=== PATIENT | female | born 1955 | race Caucasian/White ===

== ENCOUNTER → 2016-08-30 | Outpatient (CLI) | payer OTHER ==
--- NOTE | 2016-08-30 16:05 | KCIC ---
PROCEDURE Bilateral screening mammogram HISTORY 61-year-old female presents for annual screening mammogram. COMPARISON August 17, 2015 FINDINGS Bilateral digital mammograms are obtained with CAD. The breasts are heterogeneously dense, which can obscure small masses (tissue density C). No dominant suspicious mass, suspicious microcalcifications, or architecture distortion is identified in either breast. IMPRESSION Negative exam. Recommend screening mammogram in 1 year. BI-RADS category 1: Negative The patient information was entered into a reminder system with a target due date for the next mammogram. Mammography is not 100% sensitive in detecting breast cancer. Therefore, a self breast exam and a clinical breast exam are very important. A negative mammogram does not negate a clinically suspicious finding and should not result in a delay in biopsying a clinically suspicious abnormality. Electronically signed by: Maria Elena Davis (Aug 30, 2016 16:04:29)
== END | disposition home or self-care (01) ==
LOC: KCIC MAMMO 15:25
PROVIDERS: ATTEND Nurse Practitioner Adult Health
DX: Z12.31 Encounter for screening mammogram for malignant neoplasm of breast (principal)
CPT/HCPCS: G0202; 77067

== ENCOUNTER → 2017-09-18 | Outpatient (CLI) | payer OTHER | END | disposition home or self-care (01) | LOC: KCIC MAMMO 15:48 | DX: Z12.31 Encounter for screening mammogram for malignant neoplasm of breast (principal) | CPT/HCPCS: 77063; 77067 ==

== ENCOUNTER → 2018-10-22 | Outpatient (CLI) | payer OTHER ==
--- NOTE | 2018-10-23 12:32 | KCIC ---
Bilateral digital screening mammograms with 3-D tomosynthesis: Reason for examination: Routine screening. Comparison is made to previous studies dated 09/18/2017 and 08/30/2016. Bilateral mammograms in CC and oblique projections were obtained with 2-D imaging and 3-D tomosynthesis imaging on a Siemens Inspiration unit and reviewed on the workstation. Interpretation was made with the benefit of CAD. The skin and nipples show no abnormalities. No abnormal axillary lymph nodes are seen. The breast parenchyma is heterogeneously dense. (Breast density: Category C.) There appears to be a nodular density developing laterally in the left breast on CC view probably in the 4:00 B position. Recommend further evaluation with coned compression views in CC and lateral projections and left breast ultrasound. There are no other dominant masses, suspicious calcifications or architectural distortion. Impression: Possible nodule developing in the left breast at the 4:00 B position. Recommend further evaluation with coned compression views and ultrasound. Your patient's mammogram demonstrates that she has dense breast tissue (breast density category C or D), which could hide abnormalities, and if she has other risk factors for breast cancer that have been identified, she might benefit from supplemental screening tests that may be suggested by you as her ordering physician. Dense breast tissue, in and of itself, is a relatively common condition. Therefore, this information is not provided to cause undue concern, but rather to raise your awareness and to promote discussion with your patient regarding the presence of other risk factors, in addition to dense breast tissue. Your patient's mammography results will be sent to her. BI-RAD Category 0: Incomplete. Needs additional imaging evaluation. "Our facility is accredited by the [employer] Mammography [employer]." This patient's information has been entered into a reminder system for the patient to be notified with the results of her examination and a target date for the next mammogram. Electronically signed by: Sagrario Martinez MD (10/23/2018 12:29 PM) [facility]
== END | disposition home or self-care (01) ==
LOC: KCIC MAMMO 16:00
PROVIDERS: ATTEND Obstetrics & Gynecology
DX: Z12.31 Encounter for screening mammogram for malignant neoplasm of breast (principal)
CPT/HCPCS: 77063; 77067

== ENCOUNTER → 2018-10-30 | Outpatient (CLI) | payer OTHER ==
--- NOTE | 2018-10-30 14:22 | KCIC ---
Left breast diagnostic digital mammograms: Reason for examination: Nodular density on screening mammogram. Comparison is made to mammographic exam dated 10/22/2018. Coned compression views were obtained in CC and lateral projections. With these additional views, there is still some subtle nodularity suggested on cc view which is probably at the 4:00 position. Further evaluation with ultrasound will follow. IMPRESSION: Nodularity persists anterior laterally in the left breast. Ultrasound to follow. BI-RADS Category 0: Incomplete. Needs additional imaging evaluation. Left breast ultrasound: Ultrasound examination was performed with attention to the lateral breast and left axilla. In the 4:00 position 4 cm from the nipple, there is a 5.8 x 6.5 mm hypoechoic lesion which may represent a small fibroadenoma. There is also a small 3.8 mm hypoechoic fibrocystic type lesion in the 3:00 position 5 cm from the nipple. No other cystic or solid lesions are seen. No abnormal appearing lymph nodes are seen in the axilla. IMPRESSION: Small 3.8 mm fibrocystic type lesion at the 3:00 position. 6.5 mm nodule probably representing a fibroadenoma at the 4:00 position. No suspicious abnormality seen. Recommend 6 month follow-up with ultrasound. BI-RADS Category 3: Probably Benign. "Our facility is accredited by the [employer] Mammography Program." This patient's information has been entered into a reminder system for the patient to be notified with the results of her examination and a target date for the next mammogram. Electronically signed by: Sagrario Martinez MD (10/30/2018 2:19 PM) [facility]
== END | disposition home or self-care (01) ==
LOC: KCIC MAMMO 13:03
PROVIDERS: ATTEND Obstetrics & Gynecology
DX: R92.8 Other abnormal and inconclusive findings on diagnostic imaging of breast (principal)
CPT/HCPCS: 76641; 77065

== ENCOUNTER → 2019-05-20 | Outpatient (CLI) | payer OTHER ==
--- NOTE | 2019-05-20 10:42 | KCIC ---
BREAST LEFT Clinical Indication: Six-month follow-up. Comparison: Bilateral mammogram 10/22/2018. Diagnostic left mammogram and breast ultrasound 10/30/2018. TECHNIQUE: Real-time ultrasound imaging of the left breast is performed. Findings: At the 4:00 position 4 cm from the nipple, well-circumscribed hypoechoic lesion measures 5 x 3 mm and is probably a fibroadenoma. At the 3:00 position 5 cm from the nipple, hypoechogenicity measures up to 3 mm and is stable. The margins are mildly irregular. Finding may be due to fibrocystic change. No abnormal axillary lymph node is identified. IMPRESSION: 1. Interval stability of tiny fibrocystic change at the 3:00 position 5 cm from the nipple. Recommend additional six-month ultrasound follow-up to document one-year of stability. 2. Stable probable fibroadenoma 4:00 position 4 cm from the nipple. 3. BI-RADS Category 3, probably benign. Electronically signed by: Walker Sanchez MD (05/20/2019 10:39 AM) [facility]
== END | disposition home or self-care (01) ==
LOC: KCIC US 10:02
PROVIDERS: ATTEND Obstetrics & Gynecology
DX: N64.89 Other specified disorders of breast (principal); N63.20 Unspecified lump in the left breast, unspecified quadrant
CPT/HCPCS: 76641

== ENCOUNTER → 2020-02-13 | Outpatient (CLI) | payer OTHER ==
--- NOTE | 2020-02-13 18:42 | KCIC ---
Left breast ultrasound: Reason for examination: Follow-up for nodule. Comparison is made to previous studies dated 05/20/2019 and 10/30/2018. Ultrasound examination of the left breast was performed in the area of previous concern and at the axilla. At the 4:00 position 4 cm from the nipple, there continues to be a hypoechoic circumscribed lesion measuring 4.4 mm in greatest dimension and line in parallel orientation consistent with a small fibroadenoma. No new cystic or solid nodules are seen. Impression: Continued presence of a small nodule probably representing a fibroadenoma at the 4:00 position which appears to be stable. Recommend routine mammographic follow-up. BI-RADS Category 2: Benign. "Our facility is accredited by the [employer] Mammography Program." This patient's information has been entered into a reminder system for the patient to be notified with the results of her examination and a target date for the next mammogram. Electronically signed by: Sagrario Martinez MD (02/13/2020 6:39 PM) [id number]
== END | disposition home or self-care (01) ==
LOC: KCIC US 07:54
PROVIDERS: ATTEND Nurse Practitioner Family
DX: R92.8 Other abnormal and inconclusive findings on diagnostic imaging of breast (principal); N63.23 Unspecified lump in the left breast, lower outer quadrant
CPT/HCPCS: 76641

== ENCOUNTER → 2020-02-26 | Outpatient (CLI) | payer OTHER ==
--- NOTE | 2020-02-26 11:13 | KCIC ---
Bilateral digital screening mammograms with 3-D tomosynthesis: Reason for examination: Routine screening. Comparison is made to previous studies dated back to 08/17/2015. Bilateral mammograms in CC and oblique projections were obtained with 2-D imaging and 3-D tomosynthesis imaging on a Siemens Inspiration unit and reviewed on the workstation. Interpretation was made with the benefit of CAD. The skin and nipples show no abnormalities. No abnormal axillary lymph nodes are seen. The breast parenchyma is heterogeneously dense. (Breast density: Category C.) There are no dominant masses, suspicious calcifications or architectural distortion. Impression: No evidence of malignancy. Recommend routine screening. Your patient's mammogram demonstrates that she has dense breast tissue (breast density category C or D), which could hide abnormalities, and if she has other risk factors for breast cancer that have been identified, she might benefit from supplemental screening tests that may be suggested by you as her ordering physician. Dense breast tissue, in and of itself, is a relatively common condition. Therefore, this information is not provided to cause undue concern, but rather to raise your awareness and to promote discussion with your patient regarding the presence of other risk factors, in addition to dense breast tissue. Your patient's mammography results will be sent to her. BI-RAD Category 1: Negative. "Our facility is accredited by the [employer] Mammography Program." This patient's information has been entered into a reminder system for the patient to be notified with the results of her examination and a target date for the next mammogram. Electronically signed by: Sagrario Martinez MD (02/26/2020 11:10 AM) [email or web address]
== END | disposition home or self-care (01) ==
LOC: KCIC MAMMO 09:51
PROVIDERS: ATTEND Nurse Practitioner Family
DX: Z12.31 Encounter for screening mammogram for malignant neoplasm of breast (principal)
CPT/HCPCS: 77063; 77067

== ENCOUNTER 2020-07-05 15:38 | Emergency (ER) | payer OTHER ==
[~2020-07-05] VITALS: Ht 170.2 cm; Wt 62.2 kg
--- NOTE | 2020-07-05 15:55 | PHYS DOC ---
General Adult HPI: HPI: 64-year-old female past medical history of anxiety/depression with intentional weight loss, approximately 30 pounds due to dieting in the past 6 months, and osteoporesis (talks calcium, use to be on generic boniva), presents to the ED brought by EMS from work, after witnessed syncope while bending down forward to pick something up and standing up quickly. Pt reports feeling dizziness prior to syncope and has had some dizziness, intermittently throughout the day. Denies any starvation or bulemia, tolerated food today. Denies any overdose of any medications. No prior history of head trauma, not on any anticoagulants. History of syncope approximately 30 years ago. Does not smoke tobacco. No history of cardiac arrhythmias, CAD, stroke, pulmonary emboli, connective tissue disorder, sudden under the age of 50 and family or aortic disease. No preceding chest pain, back pain, abdominal pain or shortness of breath. Prior to this felt well with no fever/infection or fluid losses (no V/D). Tetanus is UTD. No drug/alcohol use. C/o right lateral ankle pain in the ed. (MELISSA MCBRIDE DO) Review of Systems: Review of Systems: Constitutional: Denies fever or chills. [] Eyes: Denies change in visual acuity/blurry vision HENT: Denies nasal congestion or sore throat or facial bone ttp Respiratory: Denies cough or shortness of breath. [] Cardiovascular: Denies chest pain or edema. [] GI: Denies abdominal pain, nausea, vomiting, bloody stools or diarrhea. [] : Denies dysuria or hematuria Musculoskeletal: Denies back pain or joint pain. [] Integument: Denies rash. [] Neurologic: Denies headache, midline neck pain, focal weakness or sensory changes. [] Endocrine: Denies polyuria or polydipsia. [] Lymphatic: Denies swollen glands. [] Psychiatric: Denies SI/HI (MELISSA MCBRIDE DO) Heart Score: Risk Factors: Risk Factors: DM, Current or recent (<one month) smoker, HTN, HLP, family history of CAD, obesity. Risk Scores: Score 0 - 3: 2.5% MACE over next 6 weeks - Discharge Home Score 4 - 6: 20.3% MACE over next 6 weeks - Admit for Clinical Observation Score 7 - 10: 72.7% MACE over next 6 weeks - Early Invasive Strategies (MELISSA MCBRIDE DO) Physical Exam: PE: Constitutional: Very thin, HENT: 1.5 cm laceration over left lateral eyebrow line Eyes: EOMI, conjunctiva normal, no discharge. Neck: Normal range of motion, supple, Cardiovascular: S1/2 present, regular rhythm Lungs & Thorax: Speaking in full sentences, bilateral equal chest rise, no tachypnea or increased work of breathing Abdomen: soft, no tenderness, Skin: Warm, dry, no erythema, Back: No midline tenderness, no CVA tenderness. [] Extremities: No tenderness, mild swelling to right lateral distal fibula w/ttp, no russells sign Neurologic: Alert and oriented X 3, normal motor function, normal sensory func tion, no focal deficits noted. [] Psychologic: Affect normal, judgement normal, somewhat anxious Nexus C-spine criteria are negative: There is no post midline tenderness, the patient is not intoxicated, there is a normal level of alertness, there are no focal neurologic deficits and there are no distracting injuries. no indication for c-collar. (MELISSA MCBRIDE DO) PE: Constitutional: Well developed, well nourished, no acute distress, non-toxic appearance Eyes: PERRL, EOMI, conjunctiva normal, no discharge Lungs & Thorax: No respiratory distress, equal chest rise and fall Skin: Warm, dry, no erythema, no rash, 4cm laceration to left eyebrow, bleeding controlled, no foreign body noted. Extremities: right lateral malleolar pain and swelling, CR < 2 sec, DP and PT +2 Neurologic: Alert and oriented X 3, normal motor function, normal sensory func tion, no focal deficits noted Psychologic: Affect normal, judgment normal (ALINE ORTIZ DO) EKG: EKG: Sinus rhythm at 67 bpm, no axis deviation, normal intervals, no T wave inversions, no ST elevations or ST depressions, low limb lead voltage (MELISSA MCBRIDE DO) Radiology/Procedures: Radiology/Procedures: IMAGING REPORT Signed PATIENT: MIKE MENDOZA ACCOUNT: [id number] : 1955 LOCATION: ER AGE: 64 SEX: F EXAM STATUS: PRE ER ORD. PHYSICIAN: MELISSA MCBRIDE DO REASON: syncope today, hit head PROCEDURE: CT HEAD WO CONTRAST CT brain without contrast. HISTORY: Syncope, head trauma CT scan the brain was done without contrast. Sinuses are clear. A skull fracture is not identified. Mastoids are normally aerated. There is no intracranial hemorrhage or subdural hematoma. Ventricles are normal in size. There is no mass or shift of the midline. There is decreased density in the white matter which could be chronic microvascular changes but white matter disease for other etiologies is possible. MRI would be of benefit. IMPRESSION: 1. Areas of decreased density in the white matter, correlation with MRI would be of benefit. 2. No intracranial hemorrhage or other acute finding. [facility] Compliance Statement: One or more of the following individualized dose reduction techniques were utilized for this examination: 1. Automated exposure control 2. Adjustment of the mA and/or kV according to patient size 3. Use of iterative reconstruction technique Electronically signed by: Jasson Perdomo MD (07/05/2020 4:20 PM) [facility] DICTATED and SIGNED BY: JASSON PERDOMO MD DATE: 07/05/20 [id number] IMAGING REPORT Signed PATIENT: MIKE MENDOZA ACCOUNT: [id number] : 1955 LOCATION: ER AGE: 64 SEX: F EXAM STATUS: PRE ER ORD. PHYSICIAN: MELISSA MCBRIDE DO REASON: syncope PROCEDURE: PORTABLE CHEST 1V EXAM: PORTABLE CHEST 1V INDICATION: Reason: syncope / Spl. Instructions: / History: . TECHNIQUE: Single view COMPARISON: None FINDINGS: The heart size is normal. The great vessels appear unremarkable. There is no hilar or mediastinal mass. The lungs are clear. There is no pleural effusion or pneumothorax. There are no significant osseous abnormalities. IMPRESSION: No active cardiopulmonary disease. Electronically signed by: Ilana Wilkins MD (07/05/2020 4:05 PM) [id number] DICTATED and SIGNED BY: ILANA WILKINS MD DATE: 07/05/20 [id number] IMAGING REPORT Signed PATIENT: MIKE MENDOZA ACCOUNT: [id number] : 1955 LOCATION: ER AGE: 64 SEX: F EXAM STATUS: REG ER ORD. PHYSICIAN: MELISSA MCBRIDE DO REASON: ankle pain PROCEDURE: ANKLE RIGHT 3V 3 view study of the right ankle Clinical indications: Right ankle pain. FINDINGS: There is a nondisplaced spiral fracture of the distal right fibular metadiaphysis. The mortise ankle joint is intact. No lytic process is seen. IMPRESSION: Fracture of the distal right fibula. Electronically signed by: Curtis Edge MD (07/05/2020 5:10 PM) [id number] DICTATED and SIGNED BY: CURTIS EDGE MD DATE: 07/05/20 [id number] (MELISSA MCBRIDE DO) Course & Med Decision Making: Course & Med Decision Making Pertinent Labs and Imaging studies reviewed. (See chart for details) Concern for syncope with right facial laceration, suspect vasovagal vs orthostatic hypotension. CT images with no trauma. Right ankle x-ray with sp iral right distal tibial fracture, minimally displaced. Patient with no right knee or fibular head pain. Patient does report history of osteoporosis with multiple fractures including left ankle right wrist and toes. Patient is pending splint laceration repair. Due to shift change patient was signed out to oncoming physician Dr. Ortiz for further evaluation. Patient was advised to follow-up with Ortho in the next 2 weeks. Patient was given strict ED return precautions for chest, back, abdominal pain, recurrent syncope or difficulties breathing. Life/limb-threatening differential includes but is not limited to, intracranial hemorrhage, diffuse axonal injury, spinal cord syndrome, unstable cervical fracture or SCIWORA, fractures or joint dislocations, neurovascular injuries, organ injury or laceration, pneumothorax, pneumoperitoneum, pericardial tamponade, unstable pelvic fracture, compartment syndrome, flail chest or respiratory distress, burn injury or asphyxiation, AAA, CVA, aortic dissection, acute coronary syndrome, anemia, valvular disorder, cerebrovascular accident, drug overdose or toxidrome, arrhythmia, prolonged QT syndrome, hemorrhage, heat illness, intracranial hemorrhage, infection including meningitis/encephalitis/sepsis/toxic shock/myocarditis, vertebrobasilar insufficiency, seizure, medication adverse event, illicit drug use, electrolyte disorder (MELISSA MCBRIDE DO) Course & Med Decision Making [id number]-signout received from Dr. Mcbride for patient with syncopal episode. Patient with known right distal fibular fracture which was splinted. Splint evaluated. Limb neurovascularly intact. Patient also noted to have a laceration to left eyebrow which was repaired by myself. Labs reviewed. CT and x-ray imaging also reviewed. Discharge paperwork completed by Dr. Mcbride. A prescription for hydrocodone was also provided by Dr. Mcbride. Patient stable for discharge with outpatient follow-up with PCP/orthopedics. Orthopedic referral provided. Discussed findings and plan with patient, who acknowledges understanding and agreement. (ALINE ORTIZ DO) Dragon Disclaimer: Dragon Disclaimer: This electronic medical record was generated, in whole or in part, using a voice recognition dictation system. (MELISSA MCBRIDE DO) Splinting Splinting : Location: Right ankle Hand-Made Type: orthoglass Splint: sugar-tong Pre-Proc Neuro Vasc Exam: normal Post-Proc Neuro Vasc Exam: normal, unchanged from pre-exam (ALINE ORTIZ DO) Laceration/Wound Repair Laceration/Wound Repair : Wound Location: face Wound's Depth, Shape: linear Wound Length (cm): 4 Wound Explored: no foreign body removed Irrigated w/ Saline (ccs): 200 Anesthesia: Lidocaine w/ Epi (2%) Volume Anesthetic (ccs): 2 Wound Debrided: minimal Wound Repaired With: sutures Suture Size/Type: 6:0, nylon Number of Sutures: 7 Sterile Dressing Applied?: Yes Progress Verbal consent obtained. Time out performed. Hand hygiene utilized. Wound cleaned with ChloraPrep. Anesthesia obtained via a 30-gauge hypodermic needle with (2) mL's of lidocaine 2% with epinephrine. Copious irrigation performed. Wound well approximated with 6-0 Nylon x 7 simple interrupted. Patient tolerated procedure well and without difficulty. Empiric antibiotic ointment applied prior to sterile dressing. (ALINE ORTIZ DO) Departure Departure Impression: Primary Impression: Syncope and collapse Additional Impressions: Facial laceration Qualified Codes: S01.81XA - Laceration without foreign body of other part of head, initial encounter Closed right fibular fracture Qualified Codes: S82.831A - Other fracture of upper and lower end of right fibula, initial encounter for closed fracture Disposition: 01 DC HOME SELF CARE/HOMELESS Condition: STABLE Referrals: LYNETTE LAMAS MD (PCP) CARLOS TOMLIN MD Patient Instructions: Ankle Fracture, Laceration Care, Adult, [id number], Splint Care, [id number], Syncope Additional Instructions: FOLLOW UP WITH ORTHOPEDICS: Orthopaedic Sports Medicine Orthopaedic Surgery [facility] Address: [address] [facility] [address] [address] EMERGENCY DEPARTMENT GENERAL DISCHARGE INSTRUCTIONS Thank you for coming to [facility] Emergency Department (ED) today and trusting us with you care. We trust that you had a positive experience in our Emergency Department. If you wish to speak to the department management, you may call the Director at [phone]. YOUR FOLLOW UP INSTRUCTIONS ARE FOLLOWS: 1. Do you have a private Doctor? If you do not have a private doctor, please ask for a resource list of physicians or clinics that may be able to assist you with f ollow up care. 2. The Emergency Physicain has interpreted your x-rays. The X-Ray specialist will also review them. If there is a change in the findings, you will be notified in 48 hours when at all possible. 3. A lab test or culture has been done, your results will be reviewed and you will be notified if you need a change in treatment. ADDITIONAL INSTRUCTIONS AND INFORMATION: 1. Your care today has been supervised by a physician who is specially trained in emergency care. Many problems require more than one evaluation for a complete diagnosis and treatment. We recommend that you schedule your follow up appointment as recommended to ensure complete treatment of you illness or injury. If you are unable to obtain follow up care and continue to have a problem, or if your condition worsens, we recommend that you return to the ED. 2. We are not able to safely determine your condition over the phone nor are we able to give sound medical advice over the phone. For these safety reasons, if you call for medical advice we will ask you to come to the ED for further evaluation. 3. If you have any questions regarding these discharge instructions please call the ED at [phone]. SAFETY INFORMATION: In the interest of safety, wellness, and injury prevention; we encourage you to wear your sealbelt, if you smoke; quite smoking, and we encourage family to use a protect monie helmet for bicycling and other sporting events that present an increased risk for head injury. IF YOUR SYMPTOMS WORSEN OR NEW SYMPTOMS DEVELOP, OR YOU HAVE CONCERNS ABOUT YOUR CONDITION; OR IF YOUR CONDITION WORSENS WHILE YOU ARE WAITING FOR YOUR FOLLOW UP APPOINTMENT; EITHER CONTACT YOUR PRIMARY CARE DOCTOR, THE PHYSICIAN WHOSE NAME AND NUMBER YOU WERE GIVEN, OR RETURN TO THE ED IMMEDIATELY. Do not soak your wound. You may shower. Clean wound daily with soap and water. Change dressing 2 times daily. Use over the counter antibiotic ointment with each dressing change. Sutures need to be removed in 5 days. Present to your family doctor or local urgent care for removal. You may also present to the ED but it will be an additional visit/charge. After suture removal you may use Vitamin E ointment to soften the wound and prevent scarring. Scripts Hydrocodone/Apap 5-325 (NORCO 5-325 TABLET) 1 Each Tablet 1 TAB PO PRN Q6HRS PRN for PAIN, #10 TAB 0 Refills Prov: MELISSA MCBRIDE DO 07/05/20 MELISSA MCBRIDE DO Jul 05, 2020 15:55 ORTIZALINE DO Jul 05, 2020 19:33
--- NOTE | 2020-07-05 16:08 | RAD ---
EXAM: PORTABLE CHEST 1V INDICATION: Reason: syncope / Spl. Instructions: / History: . TECHNIQUE: Single view COMPARISON: None FINDINGS: The heart size is normal. The great vessels appear unremarkable. There is no hilar or mediastinal mass. The lungs are clear. There is no pleural effusion or pneumothorax. There are no significant osseous abnormalities. IMPRESSION: No active cardiopulmonary disease. Electronically signed by: Yeison Wilkins MD (07/05/2020 4:05 PM) [id number]
[2020-07-05 16:12] LABS: BASO # 0.1 x10^3/uL (0.0-0.2); BASO % 1 % (0-3); EOS # 0.1 x10^3/uL (0.0-0.7); EOS % 1 % (0-3); HEMOGLOBIN 12.8 g/dL (12.0-15.5); LYMPH # 2.1 x10^3/uL (1.0-4.8); LYMPH % 32 % (24-48); MEAN CORPUSCULAR HEMOGLOBIN 33 pg (25-35); MEAN CORPUSCULAR HGB CONC 34 g/dL (31-37); MEAN CORPUSCULAR VOLUME 98 fL (79-100); MONO # 0.5 x10^3/uL (0.0-1.1); MONO % 7 % (0-9); NEUT % 60 % (31-73); PLATELET COUNT 197 x10^3/uL (140-400); RED BLOOD COUNT 3.87 x10^6/uL (3.50-5.40); WHITE BLOOD COUNT 6.7 x10^3/uL (4.0-11.0)
[2020-07-05 16:15] LABS: CALCIUM 9.2 mg/dL (8.5-10.1); CREATININE 0.8 mg/dL (0.6-1.0); GFR 72.7; POTASSIUM 4.1 mmol/L (3.5-5.1)
[2020-07-05] MEDS ORDERED: IV NORMAL SALINE 1000ML BAG 1,000 ML IV ONE ×2 (16:15)
[2020-07-05 16:21] LABS: ACETAMIN < 2 mcg/ml (10-30); ALBUMIN 3.6 g/dL (3.4-5.0); ALBUMIN/GLOBULIN RATIO 1.4 (1.0-1.7); ETHANOL < 10 mg/dL (0-10); MAGNESIUM 2.2 mg/dL (1.8-2.4); SALIC < 2.8 mg/dL (2.8-20.0); TOTAL BILIRUBIN 0.4 mg/dL (0.2-1.0); TOTAL PROTEIN 6.2 g/dL (6.4-8.2)
--- NOTE | 2020-07-05 16:23 | RAD ---
CT brain without contrast. HISTORY: Syncope, head trauma CT scan the brain was done without contrast. Sinuses are clear. A skull fracture is not identified. Mastoids are normally aerated. There is no intracranial hemorrhage or subdural hematoma. Ventricles are normal in size. There is no mass or shift of the midline. There is decreased density in the white matter which could be chronic microvascular changes but white matter disease for other etiologies is possible. MRI would be of benefit. IMPRESSION: 1. Areas of decreased density in the white matter, correlation with MRI would be of benefit. 2. No intracranial hemorrhage or other acute finding. PQRS Compliance Statement: One or more of the following individualized dose reduction techniques were utilized for this examination: 1. Automated exposure control 2. Adjustment of the mA and/or kV according to patient size 3. Use of iterative reconstruction technique Electronically signed by: Jasson Perdomo MD (07/05/2020 4:20 PM) [facility]
--- NOTE | 2020-07-05 17:13 | RAD ---
3 view study of the right ankle Clinical indications: Right ankle pain. FINDINGS: There is a nondisplaced spiral fracture of the distal right fibular metadiaphysis. The mortise ankle joint is intact. No lytic process is seen. IMPRESSION: Fracture of the distal right fibula. Electronically signed by: Dom Edge MD (07/05/2020 5:10 PM) [id number]
[2020-07-05] MEDS ORDERED: NEOMY/BACITR/POLYMYXIN OINT PACKET. TP ONE (17:45)
[2020-07-05] MEDS ORDERED: LIDOCAINE 1% Multi-Dose 20 ML VIAL. INJ ONE (18:00)
[2020-07-05] MEDS ORDERED: HYDR-3164 PO ×2 (18:44→19:02)
[2020-07-05] MEDS ORDERED: LIDOCAINE 2%/EPI 1:100,000 20 ML VIAL. INJ ONE (19:30)
[2020-07-05 20:00] VITALS: BP 110/57
--- NOTE | 2020-07-06 07:47 | EKG ---
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
== END 2020-07-05 20:20 | disposition home or self-care (01) ==
LOC: ER 15:38
DX: S82.831A Other fracture of upper and lower end of right fibula, initial encounter for closed fracture (principal); S01.81XA Laceration without foreign body of other part of head, initial encounter; R55 Syncope and collapse; W18.39XA Other fall on same level, initial encounter; Y93.89 Activity, other specified; Y92.69 Other specified industrial and construction area as the place of occurrence of the external cause; Y99.0 Civilian activity done for income or pay
CPT/HCPCS: 12013; 29515; 36415; 70450; 71045; 73610; 80053; 80329; 83735; 84484; 85025; 93005; 96360; 99285; G0480; J3490; J7030

== ENCOUNTER → 2021-03-03 | Outpatient (CLI) | payer OTHER ==
[~2021-03-03] MED LIST: HYDR-3164 PO
--- NOTE | 2021-03-03 16:39 | KCIC ---
EXAM: Bilateral digital screening mammogram with tomosynthesis. HISTORY: 65-year-old female presents for screening mammography. TECHNIQUE: Full-field digital craniocaudal and mediolateral oblique 2D and 3D tomosynthesis images of both breasts are obtained for evaluation. Computer aided detection was applied. COMPARISON: 02/24/2020 BREAST PARENCHYMAL DENSITY: Level C - Heterogeneously dense. FINDINGS: There is no new suspicious mass, microcalcification or region of architectural distortion. There are stable areas of asymmetry and nodularity within both breasts. IMPRESSION: BI-RADS Category 2: Benign finding(s). RECOMMENDATION: Annual mammography is recommended. If your mammogram demonstrates that you have dense breast tissue, which could hide abnormalities, and if you have other risk factors for breast cancer that have been identified, you might benefit from s upplemental screening tests that may be suggested by your ordering physician. Dense breast tissue, i n and of itself, is a relatively common condition. This information is not provided to cause undue c oncern, but rather to raise your awareness and to promote discussion with your physician regarding th e presence of other risk factors, in addition to dense breast tissue. A report of your mammography re sults will be sent to you and your physician. You should contact your physician if you have any ques tions or concerns regarding this report. Mammography is a sensitive method for finding small breast cancers, but it does not detect them all a nd is not a substitute for careful clinical examination. A negative mammogram does not negate a clin ically suspicious finding and should not result in delay in biopsying a clinically suspicious abnorma lity. PQRS compliance statement - Patient information was entered into a reminder system with a target due date for the next mammogram. "Our facility is accredited by the [employer] Mammography Program." Electronically signed by: Sally Radford MD (03/03/2021 4:36 PM) [email or web address]
== END ==
LOC: KCIC MAMMO 16:00
PROVIDERS: ATTEND Obstetrics & Gynecology
DX: Z12.31 Encounter for screening mammogram for malignant neoplasm of breast (principal)
CPT/HCPCS: 77063; 77067